=== PATIENT | female | born 1990 | race American Indian/Alaskan Native ===

== ENCOUNTER 2020-08-21 12:09 | Emergency (ER) | payer OTHER ==
--- NOTE | 2020-08-21 12:35 | Event Note ---
ED Screening Note Date of service: 08/21/20 Time: 12:32 ED Screening Note: Pt c/o headaches, dizziness, and + test x 4 days +lower abdominal pain denies vaginal bleeding also states thyroid disease This initial assessment/diagnostic orders/clinical plan/treatment(s) is/are subject to change based on patients health status, clinical progression and re- assessment by fellow clinical providers in the ED. Further treatment and workup at subsequent clinical providers discretion. Patient/guardian urged not to elope from the ED as their condition may be serious if not clinically assessed and managed. Initial orders include: labs US
[2020-08-21 13:26] LABS: Bacteria,Urine 1+ /HPF (Negative); Bilirubin,Urine NEG (Negative); Blood,Urine NEG (Negative); Color,Urine Yellow (Yellow); Mucus,Urine 3+ /HPF; Protein,Urine <15 mg/dL mg/dL (Negative)
--- NOTE | 2020-08-21 13:39 | Ultrasound Report ---
ULTRASOUND OBSTETRIC INDICATION / CLINICAL INFORMATION: abdominal pain in . TECHNIQUE: Transabdominal. COMPARISON: None available. FINDINGS: GESTATIONAL SAC: Well-defined oval shape and intrauterine in location. YOLK SAC: No significant abnormality. EMBRYO/FETUS: No significant abnormality. - [place]-Rump Length = 3.9 cm = 6 weeks, 3 day(s). - Heart Rate, beats per minute (if present) = 125 ADNEXA: No significant abnormality. FREE FLUID: None. ADDITIONAL FINDINGS: None. IMPRESSION: 1. Single, living intrauterine with estimated sonographic age of 6 weeks, 3 day(s). Signer Name: Jeremiah Resendez MD Signed: 08/21/2020 1:35 PM Workstation Name: [id number]
[2020-08-21 14:24] LABS: Basophils % (Auto) 0.5 % (0.0-1.8); Eosinophils % (Auto) 0.9 % (0.0-4.3); Lymphocytes # (Auto) 1.2 K/mm3 (1.2-5.4); Mean Corpuscular HGB Conc 36 % (30-34); Mean Corpuscular Volume 100 fl (79-97); Monocytes # (Auto) 0.5 K/mm3 (0.0-0.8); Monocytes % (Auto) 12.1 % (0.0-7.3); Platelet Count 134 K/mm3 (140-440); Red Blood Count 4.13 M/mm3 (3.65-5.03); Red Cell Distribution Width 12.9 % (13.2-15.2)
[2020-08-21 14:27] LABS: Hematocrit 41.2 % (30.3-42.9); Hemoglobin 14.8 gm/dl (10.1-14.3)
[2020-08-21 14:46] LABS: Alanine Aminotransferase 9 units/L (7-56); Albumin 4.4 g/dL (3.9-5); Blood Urea Nitrogen 5 mg/dL (7-17); Calcium 8.5 mg/dL (8.4-10.2); Hemolysis Index 5
[2020-08-21 14:47] LABS: BUN/Creatinine Ratio 7
[2020-08-21] MEDS ORDERED: METOCLOPRAMIDE 10 MG TAB PO ONE (15:41)
[2020-08-21] MEDS ORDERED: ACETAMINOPHEN 325 MG TAB PO ONE (15:41)
[2020-08-21] MEDS ORDERED: diphenhydrAMINE 25 MG CAP PO ONE (15:41)
--- NOTE | 2020-08-21 15:54 | Emergency Department Report ---
ED General Adult HPI - General Chief complaint: OB/Uterine Contractions Stated complaint: CANCER Time Seen by Provider: 08/21/20 12:32 Source: patient Mode of arrival: Ambulatory Limitations: No Limitations - History of Present Illness Initial comments: Patient is a 30-year-old female presents emergency room with complaints of headache, tingling to the bilateral hands, nausea for the last several days. She states that she is also had some mild lower abdominal discomfort which she describes as a pressure. She states that her last menstrual cycle was 07/08/2020. She states that she took a test and it was positive. She denies any vomiting, diarrhea, fever, vaginal bleeding, vaginal discharge or irritation, urinary symptoms, palpitations, chest pain, shortness of breath. She states that she has a history of thyroid cancer and had a thyroid resection. She states that she is currently on levothyroxine. She states that she had an ult rasound performed recently which showed reactive lymph nodes and she has not yet followed up but she states that she has an appointment tomorrow 08/22/2020. She denies any other past medical history. She has an allergy to latex and nasal sprays. - Related Data Previous Rx's Medication Instructions Recorded Last Taken Type Acetaminophen [Tylenol] 650 mg PO Q8HR PRN #14 capsule 08/21/20 Unknown Rx Metoclopramide [Reglan] 10 mg PO Q8HR PRN #14 tab 08/21/20 Unknown Rx Allergies Allergy/AdvReac Type Severity Reaction Status Date / Time latex Allergy Unknown Verified 08/21/20 12:30 nasal sprays Allergy Unknown Uncoded 08/21/20 12:30 ED Review of Systems ROS: Stated complaint: CANCER Other details as noted in HPI Comment: All other systems reviewed and negative ED Past Medical Hx - Past Medical History Additional medical history: thyroidectomy total, bilateral reactive lymphadenopathy - Surgical History Past Surgical History?: Yes Additional Surgical History: thyroidectomy - Social History Smoking Status: Current Every Day Smoker - Medications Home Medications: Home Medications Medication Instructions Recorded Confirmed Last Taken Type Acetaminophen [Tylenol] 650 mg PO Q8HR PRN #14 capsule 08/21/20 Unknown Rx Metoclopramide [Reglan] 10 mg PO Q8HR PRN #14 tab 08/21/20 Unknown Rx ED Physical Exam - General Limitations: No Limitations General appearance: alert, in no apparent distress - Head Head exam: Present: atraumatic, normocephalic - Eye Eye exam: Present: normal appearance - ENT ENT exam: Present: mucous membranes moist - Respiratory Respiratory exam: Present: normal lung sounds bilaterally. Absent: respiratory distress, wheezes, rales, rhonchi, stridor, chest wall tenderness, accessory muscle use, decreased breath sounds, prolonged expiratory - Cardiovascular Cardiovascular Exam: Present: regular rate, normal rhythm, normal heart sounds. Absent: systolic murmur, diastolic murmur, rubs, gallop - GI/Abdominal GI/Abdominal exam: Present: soft, normal bowel sounds. Absent: distended, tenderness, guarding, rebound, rigid - Neurological Exam Neurological exam: Present: alert, oriented X3, CN II-XII intact, normal gait. Absent: motor sensory deficit - Psychiatric Psychiatric exam: Present: normal affect, normal mood - Skin Skin exam: Present: warm, dry, intact ED Course Vital Signs 08/21/20 08/21/20 08/21/20 12:30 14:49 16:02 Temperature 99.1 F Pulse Rate 60 45 L 55 L Respiratory 18 16 14 Rate Blood Pressure 120/64 Blood Pressure 117/54 124/72 [Left] O2 Sat by Pulse 100 100 100 Oximetry ED Medical Decision Making - Lab Data Result diagrams: 08/21/20 14:09 08/21/20 14:09 Lab Results 08/21/20 08/21/20 08/21/20 Range/Units 12:59 14:09 14:09 WBC 4.0 L (4.5-11.0) K/mm3 RBC 4.13 (3.65-5.03) M/mm3 Hgb 14.8 H (10.1-14.3) gm/dl Hct 41.2 (30.3-42.9) % MCV 100 H (79-97) fl MCH 36 H (28-32) pg MCHC 36 H (30-34) % RDW 12.9 L (13.2-15.2) % Plt Count 134 L (140-440) K/mm3 Lymph % (Auto) 31.0 (13.4-35.0) % [place] % (Auto) 12.1 H (0.0-7.3) % Eos % (Auto) 0.9 (0.0-4.3) % Baso % (Auto) 0.5 (0.0-1.8) % Lymph # (Auto) 1.2 (1.2-5.4) K/mm3 [place] # (Auto) 0.5 (0.0-0.8) K/mm3 Eos # (Auto) 0.0 (0.0-0.4) K/mm3 Baso # (Auto) 0.0 (0.0-0.1) K/mm3 Seg Neutrophils % 55.5 (40.0-70.0) % Seg Neutrophils # 2.2 (1.8-7.7) K/mm3 Sodium 137 (137-145) mmol/L Potassium 3.3 L (3.6-5.0) mmol/L Chloride 100.2 (98-107) mmol/L Carbon Dioxide 23 (22-30) mmol/L Anion Gap 17 mmol/L BUN 5 L (7-17) mg/dL Creatinine 0.7 (0.6-1.2) mg/dL Estimated GFR > 60 ml/min BUN/Creatinine Ratio 7 % Glucose 89 (65-100) mg/dL Calcium 8.5 (8.4-10.2) mg/dL Total Bilirubin 0.30 (0.1-1.2) mg/dL AST 16 (5-40) units/L ALT 9 (7-56) units/L Alkaline Phosphatase 40 (35-129) units/L Total Protein 7.0 (6.3-8.2) g/dL Albumin 4.4 (3.9-5) g/dL Albumin/Globulin Ratio 1.7 % TSH (0.270-4.200) mlU/mL HCG, Quant (0-4) mIU/mL Urine Color Yellow (Yellow) Urine Turbidity Slightly-cloudy (Clear) Urine pH 7.0 (5.0-7.0) Ur Specific [place] 1.015 (1.003-1.030) Urine Protein <15 mg/dl (Negative) mg/dL Urine Glucose (UA) Neg (Negative) mg/dL Urine Ketones 20 (Negative) mg/dL Urine Blood Neg (Negative) Urine Nitrite Neg (Negative) Urine Bilirubin Neg (Negative) Urine Urobilinogen 2.0 (<2.0) mg/dL Ur Leukocyte Esterase Neg (Negative) Urine WBC (Auto) 1.0 (0.0-6.0) /HPF Urine RBC (Auto) 1.0 (0.0-6.0) /HPF U Epithel Cells (Auto) 9.0 (0-13.0) /HPF Urine Bacteria (Auto) 1+ (Negative) /HPF Urine Mucus 3+ /HPF 08/21/20 08/21/20 Range/Units 14:09 14:09 WBC (4.5-11.0) K/mm3 RBC (3.65-5.03) M/mm3 Hgb (10.1-14.3) gm/dl Hct (30.3-42.9) % MCV (79-97) fl MCH (28-32) pg MCHC (30-34) % RDW (13.2-15.2) % Plt Count (140-440) K/mm3 Lymph % (Auto) (13.4-35.0) % [place] % (Auto) (0.0-7.3) % Eos % (Auto) (0.0-4.3) % Baso % (Auto) (0.0-1.8) % Lymph # (Auto) (1.2-5.4) K/mm3 [place] # (Auto) (0.0-0.8) K/mm3 Eos # (Auto) (0.0-0.4) K/mm3 Baso # (Auto) (0.0-0.1) K/mm3 Seg Neutrophils % (40.0-70.0) % Seg Neutrophils # (1.8-7.7) K/mm3 Sodium (137-145) mmol/L Potassium (3.6-5.0) mmol/L Chloride (98-107) mmol/L Carbon Dioxide (22-30) mmol/L Anion Gap mmol/L BUN (7-17) mg/dL Creatinine (0.6-1.2) mg/dL Estimated GFR ml/min BUN/Creatinine Ratio % Glucose (65-100) mg/dL Calcium (8.4-10.2) mg/dL Total Bilirubin (0.1-1.2) mg/dL AST (5-40) units/L ALT (7-56) units/L Alkaline Phosphatase (35-129) units/L Total Protein (6.3-8.2) g/dL Albumin (3.9-5) g/dL Albumin/Globulin Ratio % TSH 19.660 H (0.270-4.200) mlU/mL HCG, Quant 49388 H (0-4) mIU/mL Urine Color (Yellow) Urine Turbidity (Clear) Urine pH (5.0-7.0) Ur Specific [place] (1.003-1.030) Urine Protein (Negative) mg/dL Urine Glucose (UA) (Negative) mg/dL Urine Ketones (Negative) mg/dL Urine Blood (Negative) Urine Nitrite (Negative) Urine Bilirubin (Negative) Urine Urobilinogen (<2.0) mg/dL Ur Leukocyte Esterase (Negative) Urine WBC (Auto) (0.0-6.0) /HPF Urine RBC (Auto) (0.0-6.0) /HPF U Epithel Cells (Auto) (0-13.0) /HPF Urine Bacteria (Auto) (Negative) /HPF Urine Mucus /HPF - Radiology Data Radiology results: report reviewed Ordering Physician: [address] Date of Service: 08/21/20 Procedure(s): US OB <= 14 weeks fetus Accession Number(s): [id number] cc: [address] ULTRASOUND OBSTETRIC INDICATION / CLINICAL INFORMATION: abdominal pain in . TECHNIQUE: Transabdominal. COMPARISON: None available. FINDINGS: GESTATIONAL SAC: Well-defined oval shape and intrauterine in location. YOLK SAC: No significant abnormality. EMBRYO/FETUS: No significant abnormality. - [place]-Rump Length = 3.9 cm = 6 weeks, 3 day(s). - Heart Rate, beats per minute (if present) = 125 ADNEXA: No significant abnormality. FREE FLUID: None. ADDITIONAL FINDINGS: None. IMPRESSION: 1. Single, living intrauterine with estimated sonographic age of 6 weeks, 3 day(s). Signer Name: Jeremiah Resendez MD Signed: 08/21/2020 1:35 PM Workstation Name: [id number] Transcribed By: WG Dictated By: Jeremiah Resendez MD Electronically Authenticated By: Jeremiah Resendez MD Signed Date/Time: 08/21/201334 DD/ 31 TD/TT: - Medical Decision Making Patient is a 30-year-old female presents emergency room with complaints of headache, tingling to the bilateral hands, nausea for the last several days. She states that she is also had some mild lower abdominal discomfort which she describes as a pressure. She states that her last menstrual cycle was 07/08/2020. She states that she took a test and it was positive. She denies any vomiting, diarrhea, fever, vaginal bleeding, vaginal discharge or irritation, urinary symptoms, palpitations, chest pain, shortness of breath. She states that she has a history of thyroid cancer and had a thyroid resection. She states that she is currently on levothyroxine. She states that she had an ultrasound performed recently which showed reactive lymph nodes and she has not yet followed up but she states that she has an appointment tomorrow 08/22/2020. She denies any other past medical history. She has an allergy to latex and nasal sprays. Vitals are stable. No abnormality on physical examination as documented in chart. Labs with mild hypokalemia, advised to [place] [address]. TSH is 19. UA is within normal limits. OB ultrasound: 1. Single, living intrauterine with estimated sonographic age of 6 weeks, 3 day(s). TSH is elevated which is consistent with pts hx of thyroidectomy. pt given tylenol, benadryl, reglan while in the ED and symptoms improved. discussed all results with pt and the importance of follow up. she will need PCP and [facility] follow up. she will need her levels monitored during and have adjustments by PCP and [facility]. pt given prescription for reglan and tylenol. advised pt Please take medication as prescribed as needed. Please increase your water intake over the next several days. Please take a vitamin [id number]. Please follow-up with a primary care doctor regarding the elevation in your TSH. Please follow-up with the [facility]. Return to emergency room for any new or worsening symptoms. Critical care attestation.: If time is entered above; I have spent that time in minutes in the direct care of this critically ill patient, excluding procedure time. ED Disposition Clinical Impression: Nausea, Elevated TSH Headache Qualifiers: Headache type: unspecified Headache chronicity pattern: acute headache Intractability: not intractable Qualified Code(s): R51.9 - Headache, unspecified Hand tingling Qualifiers: Laterality: bilateral Qualified Code(s): R20.2 - Paresthesia of skin Qualifiers: Weeks of gestation: less than 8 weeks Qualified Code(s): Z3A.01 - Less than 8 w eeks gestation of Disposition: DC-01 TO HOME OR SELFCARE Is pt being admited?: No Does the pt Need Aspirin: No Condition: Stable Instructions: Morning Sickness (ED), (ED), Acute Headache (ED) Additional Instructions: Please take medication as prescribed as needed. Please increase your water intake over the next several days. Please take a vitamin [id number]. Please follow-up with a primary care doctor regarding the elevation in your TSH. Please follow-up with the [facility]. Return to emergency room for any new or worsening symptoms. Prescriptions: Metoclopramide [Reglan] 10 mg PO Q8HR PRN #14 tab PRN Reason: nausea Acetaminophen [Tylenol] 650 mg PO Q8HR PRN #14 capsule PRN Reason: headache Referrals: PRIMARY CAREMD [Primary Care Provider] - 2-3 Days SENIA KIMBALL MD [Staff Physician] - 2-3 Days [facility] [Provider Group] - 2-3 Days THERESE CLINTON MD [Staff Physician] - 2-3 Days [facility] [Provider Group] - 2-3 Days [facility] [Provider Group] - 2-3 Days [facility] [Provider Group] - 2-3 Days Time of Disposition: 15:53 Print Language: ESTONIAN
[2020-08-21 16:03] VITALS: BP 124/72
== END 2020-08-21 16:07 | disposition home or self-care (01) ==
LOC: ED 12:09
DX: O26.891 Other specified pregnancy related conditions, first trimester (principal); R51.9 Headache, unspecified; R11.0 Nausea; R20.2 Paresthesia of skin; F17.200 Nicotine dependence, unspecified, uncomplicated; Z3A.01 Less than 8 weeks gestation of pregnancy; Z79.899 Other long term (current) drug therapy; Z91.040 Latex allergy status; Z88.8 Allergy status to other drugs, medicaments and biological substances
CPT/HCPCS: 36415; 76801; 80053; 81001; 84443; 84702; 85025

== ENCOUNTER 2020-09-11 09:39 | Emergency (ER) | payer SELFPAY ==
[2020-09-11 10:10] VITALS: BP 132/66
[2020-09-11 11:16] LABS: Basophils % (Auto) 0.4 % (0.0-1.8); Eosinophils # (Auto) 0.2 K/mm3 (0.0-0.4); Eosinophils % (Auto) 3.1 % (0.0-4.3); Hematocrit 39.3 % (30.3-42.9); Hemoglobin 13.6 gm/dl (10.1-14.3); Lymphocytes # (Auto) 1.4 K/mm3 (1.2-5.4); Lymphocytes % (Auto) 23.5 % (13.4-35.0); Mean Corpuscular HGB Conc 35 % (30-34); Mean Corpuscular Volume 100 fl (79-97); Monocytes # (Auto) 0.4 K/mm3 (0.0-0.8); Monocytes % (Auto) 6.7 % (0.0-7.3); Platelet Count 142 K/mm3 (140-440); Red Blood Count 3.94 M/mm3 (3.65-5.03); Red Cell Distribution Width 12.5 % (13.2-15.2)
[2020-09-11 11:31] LABS: Alanine Aminotransferase 11 units/L (7-56); Albumin 4.2 g/dL (3.9-5); BUN/Creatinine Ratio 12; Blood Urea Nitrogen 7 mg/dL (7-17); Calcium 8.6 mg/dL (8.4-10.2); Hemolysis Index 8
[2020-09-11 12:28] LABS: Bacteria,Urine 1+ /HPF (Negative); Bilirubin,Urine NEG (Negative); Blood,Urine NEG (Negative); Color,Urine Yellow (Yellow); Mucus,Urine FEW /HPF; Protein,Urine <15 mg/dL mg/dL (Negative); Urobilinogen,Urine < 2.0 mg/dL (<2.0)
--- NOTE | 2020-09-11 16:08 | Emergency Department Report ---
ED HPI - General Chief complaint: Vaginal Bleeding Stated complaint: VOMITING WITH BLOOD, MIGRAINE Time Seen by Provider: 09/11/20 12:54 Source: patient Mode of arrival: Ambulatory Limitations: No Limitations - Related Data Previous Rx's Medication Instructions Recorded Last Taken Type Acetaminophen [Tylenol] 650 mg PO Q8HR PRN #14 capsule 08/21/20 Unknown Rx Metoclopramide [Reglan] 10 mg PO Q8HR PRN #14 tab 08/21/20 Unknown Rx Cimetidine 800 mg PO BID 30 Days #60 tablet 09/11/20 Unknown Rx Sucralfate [Carafate] 1 gm PO Q6HR 30 Days #120 tab 09/11/20 Unknown Rx Allergies Allergy/AdvReac Type Severity Reaction Status Date / Time latex Allergy Unknown Verified 08/21/20 12:30 nasal sprays Allergy Unknown Uncoded 08/21/20 12:30 ED Review of Systems ROS: Stated complaint: VOMITING WITH BLOOD, MIGRAINE Other details as noted in HPI ED Past Medical Hx - Past Medical History Previous Medical History?: Yes Additional medical history: thyroidectomy total, bilateral reactive lymphadenopathy, thyroid cancer - Surgical History Past Surgical History?: Yes Additional Surgical History: thyroidectomy - Social History Smoking Status: Never Smoker Substance Use Type: None - Medications Home Medications: Home Medications Medication Instructions Recorded Confirmed Last Taken Type Acetaminophen [Tylenol] 650 mg PO Q8HR PRN #14 capsule 08/21/20 Unknown Rx Metoclopramide [Reglan] 10 mg PO Q8HR PRN #14 tab 08/21/20 Unknown Rx Cimetidine 800 mg PO BID 30 Days #60 tablet 09/11/20 Unknown Rx Sucralfate [Carafate] 1 gm PO Q6HR 30 Days #120 tab 09/11/20 Unknown Rx ED Physical Exam - General Limitations: No Limitations ED Course Vital Signs 09/11/20 10:06 Temperature 98.5 F Pulse Rate 60 Blood Pressure 132/66 [Right] O2 Sat by Pulse 100 Oximetry ED Medical Decision Making - Lab Data Result diagrams: 09/11/20 10:24 09/11/20 10:24 Lab Results 09/11/20 09/11/20 09/11/20 Range/Units 10:24 10:24 10:24 WBC 6.1 (4.5-11.0) K/mm3 RBC 3.94 (3.65-5.03) M/mm3 Hgb 13.6 (10.1-14.3) gm/dl Hct 39.3 (30.3-42.9) % MCV 100 H (79-97) fl MCH 34 H (28-32) pg MCHC 35 H (30-34) % RDW 12.5 L (13.2-15.2) % Plt Count 142 (140-440) K/mm3 Lymph % (Auto) 23.5 (13.4-35.0) % [place] % (Auto) 6.7 (0.0-7.3) % Eos % (Auto) 3.1 (0.0-4.3) % Baso % (Auto) 0.4 (0.0-1.8) % Lymph # (Auto) 1.4 (1.2-5.4) K/mm3 [place] # (Auto) 0.4 (0.0-0.8) K/mm3 Eos # (Auto) 0.2 (0.0-0.4) K/mm3 Baso # (Auto) 0.0 (0.0-0.1) K/mm3 Seg Neutrophils % 66.3 (40.0-70.0) % Seg Neutrophils # 4.1 (1.8-7.7) K/mm3 Sodium 139 (137-145) mmol/L Potassium 3.7 (3.6-5.0) mmol/L Chloride 104.2 (98-107) mmol/L Carbon Dioxide 25 (22-30) mmol/L Anion Gap 14 mmol/L BUN 7 (7-17) mg/dL Creatinine 0.6 (0.6-1.2) mg/dL Estimated GFR > 60 ml/min BUN/Creatinine Ratio 12 % Glucose 80 (65-100) mg/dL Calcium 8.6 (8.4-10.2) mg/dL Total Bilirubin 0.50 (0.1-1.2) mg/dL AST 14 (5-40) units/L ALT 11 (7-56) units/L Alkaline Phosphatase 29 L (35-129) units/L Total Protein 6.7 (6.3-8.2) g/dL Albumin 4.2 (3.9-5) g/dL Albumin/Globulin Ratio 1.7 % TSH (0.270-4.200) mlU/mL Free T4 (0.76-1.46) ng/dL HCG, Qual Positive (Negative) HCG, Quant (0-4) mIU/mL Urine Color (Yellow) Urine Turbidity (Clear) Urine pH (5.0-7.0) Ur Specific [place] (1.003-1.030) Urine Protein (Negative) mg/dL Urine Glucose (UA) (Negative) mg/dL Urine Ketones (Negative) mg/dL Urine Blood (Negative) Urine Nitrite (Negative) Urine Bilirubin (Negative) Urine Urobilinogen (<2.0) mg/dL Ur Leukocyte Esterase (Negative) Urine WBC (Auto) (0.0-6.0) /HPF Urine RBC (Auto) (0.0-6.0) /HPF U Epithel Cells (Auto) (0-13.0) /HPF Urine Bacteria (Auto) (Negative) /HPF Urine Mucus /HPF Blood Type 09/11/20 09/11/20 09/11/20 Range/Units 13:04 15:00 15:00 WBC (4.5-11.0) K/mm3 RBC (3.65-5.03) M/mm3 Hgb (10.1-14.3) gm/dl Hct (30.3-42.9) % MCV (79-97) fl MCH (28-32) pg MCHC (30-34) % RDW (13.2-15.2) % Plt Count (140-440) K/mm3 Lymph % (Auto) (13.4-35.0) % [place] % (Auto) (0.0-7.3) % Eos % (Auto) (0.0-4.3) % Baso % (Auto) (0.0-1.8) % Lymph # (Auto) (1.2-5.4) K/mm3 [place] # (Auto) (0.0-0.8) K/mm3 Eos # (Auto) (0.0-0.4) K/mm3 Baso # (Auto) (0.0-0.1) K/mm3 Seg Neutrophils % (40.0-70.0) % Seg Neutrophils # (1.8-7.7) K/mm3 Sodium (137-145) mmol/L Potassium (3.6-5.0) mmol/L Chloride (98-107) mmol/L Carbon Dioxide (22-30) mmol/L Anion Gap mmol/L BUN (7-17) mg/dL Creatinine (0.6-1.2) mg/dL Estimated GFR ml/min BUN/Creatinine Ratio % Glucose (65-100) mg/dL Calcium (8.4-10.2) mg/dL Total Bilirubin (0.1-1.2) mg/dL AST (5-40) units/L ALT (7-56) units/L Alkaline Phosphatase (35-129) units/L Total Protein (6.3-8.2) g/dL Albumin (3.9-5) g/dL Albumin/Globulin Ratio % TSH 8.820 H (0.270-4.200) mlU/mL Free T4 1.01 (0.76-1.46) ng/dL HCG, Qual (Negative) HCG, Quant 73876 H (0-4) mIU/mL Urine Color (Yellow) Urine Turbidity (Clear) Urine pH (5.0-7.0) Ur Specific [place] (1.003-1.030) Urine Protein (Negative) mg/dL Urine Glucose (UA) (Negative) mg/dL Urine Ketones (Negative) mg/dL Urine Blood (Negative) Urine Nitrite (Negative) Urine Bilirubin (Negative) Urine Urobilinogen (<2.0) mg/dL Ur Leukocyte Esterase (Negative) Urine WBC (Auto) (0.0-6.0) /HPF Urine RBC (Auto) (0.0-6.0) /HPF U Epithel Cells (Auto) (0-13.0) /HPF Urine Bacteria (Auto) (Negative) /HPF Urine Mucus /HPF Blood Type 09/11/20 09/11/20 Range/Units Unknown Unknown WBC (4.5-11.0) K/mm3 RBC (3.65-5.03) M/mm3 Hgb (10.1-14.3) gm/dl Hct (30.3-42.9) % MCV (79-97) fl MCH (28-32) pg MCHC (30-34) % RDW (13.2-15.2) % Plt Count (140-440) K/mm3 Lymph % (Auto) (13.4-35.0) % [place] % (Auto) (0.0-7.3) % Eos % (Auto) (0.0-4.3) % Baso % (Auto) (0.0-1.8) % Lymph # (Auto) (1.2-5.4) K/mm3 [place] # (Auto) (0.0-0.8) K/mm3 Eos # (Auto) (0.0-0.4) K/mm3 Baso # (Auto) (0.0-0.1) K/mm3 Seg Neutrophils % (40.0-70.0) % Seg Neutrophils # (1.8-7.7) K/mm3 Sodium (137-145) mmol/L Potassium (3.6-5.0) mmol/L Chloride (98-107) mmol/L Carbon Dioxide (22-30) mmol/L Anion Gap mmol/L BUN (7-17) mg/dL Creatinine (0.6-1.2) mg/dL Estimated GFR ml/min BUN/Creatinine Ratio % Glucose (65-100) mg/dL Calcium (8.4-10.2) mg/dL Total Bilirubin (0.1-1.2) mg/dL AST (5-40) units/L ALT (7-56) units/L Alkaline Phosphatase (35-129) units/L Total Protein (6.3-8.2) g/dL Albumin (3.9-5) g/dL Albumin/Globulin Ratio % TSH (0.270-4.200) mlU/mL Free T4 (0.76-1.46) ng/dL HCG, Qual (Negative) HCG, Quant (0-4) mIU/mL Urine Color Yellow (Yellow) Urine Turbidity Slightly-cloudy (Clear) Urine pH 8.0 H (5.0-7.0) Ur Specific [place] 1.015 (1.003-1.030) Urine Protein <15 mg/dl (Negative) mg/dL Urine Glucose (UA) Neg (Negative) mg/dL Urine Ketones Neg (Negative) mg/dL Urine Blood Neg (Negative) Urine Nitrite Neg (Negative) Urine Bilirubin Neg (Negative) Urine Urobilinogen < 2.0 (<2.0) mg/dL Ur Leukocyte Esterase Neg (Negative) Urine WBC (Auto) 1.0 (0.0-6.0) /HPF Urine RBC (Auto) 2.0 (0.0-6.0) /HPF U Epithel Cells (Auto) 7.0 (0-13.0) /HPF Urine Bacteria (Auto) 1+ (Negative) /HPF Urine Mucus Few /HPF Blood Type O POSITIVE - Radiology Data Radiology results: report reviewed ULTRASOUND OBSTETRIC INDICATION / CLINICAL INFORMATION: vaginal bleeding. TECHNIQUE: Transvaginal COMPARISON: None available. FINDINGS: GESTATIONAL SAC: Well-defined oval shape and intrauterine in location. YOLK SAC: No significant abnormality. EMBRYO/FETUS: No significant abnormality. - [place]-Rump Length = 2.4 cm = weeks, 1 day(s). - Heart Rate, beats per minute (if present) = 154 ADNEXA: No significant abnormality. FREE FLUID: None. ADDITIONAL FINDINGS: Possible small subchorionic bleed IMPRESSION: 1. Single, living intrauterine with estimated sonographic age of 9 weeks, 1 day(s). Critical care attestation.: If time is entered above; I have spent that time in minutes in the direct care of this critically ill patient, excluding procedure time. ED Disposition Clinical Impression: TSH elevation, Vaginal spotting GERD (gastroesophageal reflux disease) Qualifiers: Esophagitis presence: esophagitis presence not specified Qualified Code(s): K21.9 - Gastro-esophageal reflux disease without esophagitis Disposition: DC-01 TO HOME OR SELFCARE Is pt being admited?: No Condition: Stable Instructions: Gastroesophageal Reflux Disease, Adult, Heartburn During , [id number], Vaginal Bleeding During , First Trimester, and Hypothyroidism Prescriptions: Sucralfate [Carafate] 1 gm PO Q6HR 30 Days #120 tab Cimetidine 800 mg PO BID 30 Days #60 tablet Referrals: SENIA KIMBALL MD [Staff Physician] - 2-3 Days (Hypothyroidism, GERD)
--- NOTE | 2020-09-11 16:22 | Ultrasound Report ---
ULTRASOUND OBSTETRIC INDICATION / CLINICAL INFORMATION: vaginal bleeding. TECHNIQUE: Transvaginal COMPARISON: None available. FINDINGS: GESTATIONAL SAC: Well-defined oval shape and intrauterine in location. YOLK SAC: No significant abnormality. EMBRYO/FETUS: No significant abnormality. - [place]-Rump Length = 2.4 cm = weeks, 1 day(s). - Heart Rate, beats per minute (if present) = 154 ADNEXA: No significant abnormality. FREE FLUID: None. ADDITIONAL FINDINGS: Possible small subchorionic bleed IMPRESSION: 1. Single, living intrauterine with estimated sonographic age of 9 weeks, 1 day(s). Signer Name: Jeremiah Resendez MD Signed: 09/11/2020 4:17 PM Workstation Name: [id number]
== END 2020-09-11 16:42 | disposition home or self-care (01) ==
LOC: ED 09:39
DX: O20.8 Other hemorrhage in early pregnancy (principal); O99.611 Diseases of the digestive system complicating pregnancy, first trimester; K92.89 Other specified diseases of the digestive system; Z79.899 Other long term (current) drug therapy; Z90.79 Acquired absence of other genital organ(s); Z3A.09 9 weeks gestation of pregnancy
CPT/HCPCS: 36415; 76801; 80053; 81001; 84439; 84443; 84702; 84703; 85025; 86900; 86901